=== PATIENT | female | born 1985 | race Caucasian/White ===

== ENCOUNTER 2022-08-11 20:17 | Emergency (ER) | payer MEDICAID ==
[~2022-08-11] VITALS: Ht 162.6 cm; Wt 77.1 kg
[2022-08-11 20:52] VITALS: BP_SYST 143
--- NOTE | 2022-08-11 20:57 | NUR ---
Pt placed to ER waiting room with son in stable condition, NAD. Wearing mask.
--- NOTE | 2022-08-11 20:58 | NUR ---
Specimens collected for FLU and COVID antigens and sent to lab.
--- NOTE | 2022-08-11 21:00 | NUR ---
Dr. Lauren assess pt.
[2022-08-11] MEDS ORDERED: ACET-2634 PO (22:43)
[2022-08-11] MEDS ORDERED: GUAI10LI14 PO (22:43)
[2022-08-11] MEDS ORDERED: IBUP-1969 PO (22:43)
[2022-08-11] MEDS ORDERED: ACETAMINOPHEN 500 MG TABLET ONE (23:25)
[2022-08-11] MEDS ORDERED: ACETAMINOPHEN 500 MG TABLET PO ONE (23:30)
[2022-08-11 23:50] VITALS: BP_SYST 135
--- NOTE | 2022-08-11 23:50 | NUR ---
Patient given written and verbal discharge instructions and verbalizes understanding. ER MD discussed with patient the results and treatment provided. Patient in stable condition. ID arm band removed. Rx of Guaifenesin, Ibuprofen, Tylenol given. Patient educated on pain management and to follow up with PMD. Pain Scale 0/10. Opportunity for questions provided and answered. Medication side effect fact sheet provided.
== END 2022-08-11 23:50 | disposition home or self-care (01) ==
LOC: SED 20:17
DX: J06.9 Acute upper respiratory infection, unspecified (principal); B34.9 Viral infection, unspecified; J02.9 Acute pharyngitis, unspecified; R09.81 Nasal congestion; R05.9 Cough, unspecified; Z79.899 Other long term (current) drug therapy; Z20.822 Contact with and (suspected) exposure to COVID-19
CPT/HCPCS: 36415; 99283